=== PATIENT | female | born 1990 | race Caucasian/White ===

== ENCOUNTER 2016-06-26 02:11 | Inpatient (IN) | payer OTHER ==
[~2016-06-26] VITALS: Ht 154.9 cm; Wt 73.5 kg
[~2016-06-26 02:11] MED LIST: FIORICET 325 MG1 TAB PO; NAPROSYN 500 M500 MG PO; NEXPLANON68 MG
[2016-06-26 06:24] VITALS: BP 130/79
[2016-06-26] MEDS ORDERED: PRENATAL TABLE1 EAC2 PO (07:55)
--- NOTE | 2016-06-26 08:01 | History & Physical ---
General Information and HPI MD Statement: I have seen and personally examined EMELY CASTILLO and documented this H&P. The patient is a 25 year old female at [39] weeks and [0] days gestation who presented with a chief complaint of [Repeat C/S]. Source of Information: patient, old records Exam Limitations: no limitations History of Present Illness: 25 yo LMP of 09/27/2015 an DAVID of 07/03/2016 presents at 39 weeks 0/7 days for repeat low cervical transverse section. Issues for this history of prior section at 42 weeks for a 9 lbs. 3 oz. son. Evaluation during this shows placenta to be posterior. Patient requested repeat section. 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 3 oz. Type of Delivery: Anesthesia: Epidural Place of Delivery: [place] Complications: None Medical History Blood Transfusion Hx: No Neurological: chronic headaches managed with Fioricet as needed EENT: NONE Cardiovascular: NONE Respiratory: NONE Gastrointestinal: NONE Hepatic: NONE Renal: NONE Musculoskeletal: NONE Psychiatric: NONE Endocrine: NONE Blood Disorders: NONE Cancer(s): NONE BRIM BLOCKER/Reproductive: inplanted bc Surgical History Pertinent Surgical History: primary section Past Family/Social History Psychosocial History Where do you live? Home Who Do You Live With? spouse, child, self Primary Language: Macanese Smoking Status: Never Smoked ETOH Use: denies use Illicit Drug Use: denies illicit drug use Review of Systems Review of Systems: Currently negative cardiopulmonary GI complaints Exam & Diagnostic Data Last 24 Hrs of Vital Signs/I&O Vital Signs Date Time Temp Pulse Resp B/P Pulse O2 O2 Flow FiO2 Ox Delivery Rate 06/26 623 98.4 88 16 130/79 99 RA Intake & Output 06/26 1600 06/26 0800 06/26 0000 Intake Total Output Total Balance Patient 162 lb Weight Obstetric Exam Wgt Gained During : 28 pounds Pelvimetry: Was inadequate for a 9 lbs. 3 oz. son Dilation (cm): 0 Effacement (%): 0 Station: -2 Membranes: intact Fluid: unknown Fundal Height (cm): 38 Multiple Gestation? No Contractions: none #1 - FHR Baseline: 14 Category: 1 Estimated Weight: 7 pounds Presentation: Vertex Patient for Induction? No Physical Exam General Appearance Alert, Oriented X3, Cooperative, No Acute Distress Skin No Rashes, No Breakdown, No Significant Lesion Cardiovascular Regular Rate Lungs Normal Air Movement Abdomen Normal Bowel Sounds, Soft, No Tenderness, No Hepatospenomegaly, gravid uterus fundal height 38 cm's vertex presentation estimated weight 7 pounds heart rate 140s category 1 no palpable contractions Neurological Normal Gait, Normal Speech Extremities No Tenderness/Swelling Reproductive (FEMALE) Normal female genitalia Labs Blood Type & Rh: O+ Antibody Screen: Negative Hct/Hgb & Platelets #1: 13.6/40.1 platelet count 264,000 Hct/Hgb & Platelets #2: 12.5/37.8 platelet count 253,000. Rubella: Immune VDRL #1: Negative VDRL #2: Negative HbsAg: Negative HIV #1: Negative HIV #2 Negative 1 Hr P 3 Hr PG: Not applicable Group B Strep: Negative Initial Ultrasound: Initial ultrasound 11/27/2015 size equals dates equals ultrasound at 8 weeks 5/7 days Anatomy Ultrasound: Anatomy scan on 01/07/1621 weeks 5/7 days vertex posterior placenta 3 vessel cord and normal fluid normal cervix normal anatomy female 1.3 cm anterior myoma Ultrasound for EFW: 06/09/2016 size less than dates on clinical exam 46 percentile 6 lbs. 7 oz. biophysical 8 out of 8 Genetic Testing: Patient declined first trimester screen just declined maternal serum AFP multiple markers. She also declined CVS and amniocentesis. Last 24 Hrs of Labs/Benedict: Microbiology 06/26 0540 URINE ROUT: Urine Culture - COLB Assessment/Plan Assessment/Plan: Intrauterine at 39 weeks in a 2 para 1 whose last baby was 9 lbs. 3 oz. at 41 weeks gestation. Her last ended in due to arrest of dilatation. Patient is set for repeat section. Plan is repeat low cervical transverse section As Ranked By This Provider Problem List: 1. 2. Antibiotics administered prior to section 3. Previous section Core Measures/Miscellaneous Sawyer Catheter Date In: 06/26/16 Still Needed? Yes Venous Thromboembolism VTE Risk Factors: / VTE Contraindications: Active Bleeding (fall risk) VTE Prophylaxis Ordered Inpt: Mechanical (ALPS/TEDS) VTE Diagnosis: No Beta Ashley Is Beta Ashley a Home Med? No If No, Why Not? not clinically indicated Antibiotics Is Patient on Antibiotics? Yes If Yes: prophylaxis Attending MD Review Statement Attending Statement Attending MD Statement: examined this patient, discussed with family, reviewed EMR data (avail), discussed w/nursing Attending Assessment/Plan: Chelsey Casey M.D.
--- NOTE | 2016-06-26 10:16 | Operative Report ---
Operative/Inv Procedure Report Surgery Date: 06/26/16 Name of Procedure: Repeat low cervical transverse section Pre-Operative Diagnosis: 25-year-old 2 para 1 with a prior section at 41 weeks gestation for a 9 lbs. 3 oz. baby. Patient declined vaginal after section is a planned repeat . No tubal ligation Post-Operative Diagnosis: Same Estimated Blood Loss: normal for 550 ML Surgeon/Superintendent Pier: DOLLY KIM,KELLY Coker Anesthesia: spinal Monitors: EKG electrode, blood pressure cuff, pulse oximeter IV Fluids: 750 ML crystalloid Implants: None Urine Output: 300 ML Drains: [place] Specimens: None Microbiology: None Tourniquet: None Complications: None Condition: Good Operative Indication: 25-year-old 2 para 1 with a previous section for a 9 lbs. 3 oz. son at 41 weeks gestation. She had experienced a failed dilation in labor at with that last delivery. Patient declined vaginal after section attempt and is planned repeat section. No plans for tubal ligation Operative/Procedure Note Note: Patient was brought to the OR room, and was placed in the sitting position on the OR table. Patient was given 2 g Kefzol IV antibiotic prophylaxis. Spinal anesthetic was placed using sterile technique. Patient was then placed in dorsal supine position with a right hip wedge. heart rate was detected at 140s beats per minute without any decelerations. ulloa catheter was placed by the nursing staff to bedside drainage. timeout was discussed by the team and agreed upon. patient was then prepped draped in the usual sterile fashion. the area of her prior incision incision was infiltrated with half percent marcaine. the area of her prior incision was then carefully incised transversely. this incision was carried down the fascia. fascia incised transversely and manually divided. rectus muscles were manually divided. parietal peritoneum was bluntly entered and the parietal peritoneum was divided manually. The low uterine segment of the uterus was without significant adhesions. The utero vesicular fold the bladder peritoneum was elevated incised transversely and the bladder was reflected inferiorly. A small incision was made in the low uterine segment and the uterine cavity was entered bluntly. Clear fluid was noted. Uterine excision was extended manually to the right left sides. Hand was introduced into the low uterine segment vertex was palpated. With fundal pressure the vertex shifted to the patient's right lower quadrant. Fundal pressure was then discontinued and vacuum was applied to the vertex in the occiput region to maintain flexion and control of the head with delivery. With simple fundal pressure and guidance of the Kiwi the infant's head was delivered through the anterior-abdominal wall without difficulty. Loose nuchal cord 1 was easily reduced. Baby's mouth and nasopharynx were bulb suctioned on the intra- abdominal wall rest of infant's body was delivered without complication at 8:33 on 06/26/2016. Live viable female was noted weight 6 lbs. 12 oz. 3055 g Apgars . The 's mouth and nasopharynx were bulb suctioned on the intra-abdominal wall. And the umbilical cord was doubly clamped cut and the infant was handed to pediatric team for evaluation. Placenta was allowed to spontaneously deliver intact normal configuration 3 vessel cord. The uterus was exteriorized and draped with wet lap pad. The uterine cavity was wiped clean of any residual membranes. No evidence of retained placental fragments. Configuration of the uterus was within normal limits.. The previously noted 1.3 cm anterior myoma was not appreciated at this time. Both fallopian tubes were normal and both ovaries were normal. There was a focal atony of the low uterine segment which was managed with the IV Pitocin IM Pitocin and IM Methergine. The uterine incision was closed with 2 separate layers first layer was running locking second layer running imbricating. 2 small [id number] sutures were used after closure of the uterus to maintain good hemostasis. Pelvis was irrigated fluid was aspirated. Good hemostasis continued. We then returned the uterus to the pelvic cavity. Good hemostasis continued. Parietal peritoneum was closed with running suture. Muscles reapproximated midline with a figure-of -eight suture. Small bleeders were managed with both 2-0 Vicryl and unipolar cautery on the muscle layer. Good hemostasis was observed at this time. Fascia closed with 2 separate segments running interlocking suture. Subcutaneous tissue was closed using 20 plain gut. Skin edges reapproximated with subcutaneous closure with Monocryl. Pressure dressing was applied. At the completion the procedure good hemostasis was noted to be present. The uterus was evacuated of any blood clots. There was no significant bleeding from the vagina. final evacuation of blood from the low uterine segment. Sponge needle and sponge counts were correct 4. Patient was transferred to the stretcher to go to the recovery room. Findings: Planned repeat section not in labor. No significant intra-abdominal or intrapelvic adhesions. Time of delivery 8:33 on 06/26/2016. Live viable female was delivered. 6 lbs. 12 oz. 3055 g Apgars 9/9/and 9. Normal placenta 3 vessel cord normal configuration of the uterus fallopian tubes and ovaries. To maintain flexion and control of the vertex the vacuum assist was utilized at time of delivery. Loose nuchal cord easily reduced. Mild low segment uterine atony that was managed with IV Pitocin intramyometrial Pitocin and IM Methergine. Discharge Disposition: CC: DESIREE GOODSON MD,ROB
[2016-06-27 10:39] LABS: ABSOLUTE BASOPHIL COUNT 0 /CUMM (0.0-0.2); ABSOLUTE EOSINOPHIL COUNT 0 /CUMM (0.0-0.7); ABSOLUTE LYMPH COUNT 1.2 /CUMM (1.2-3.4); ABSOLUTE MONOCYTE COUNT 0.5 /CUMM (0.10-0.60); MEAN CORPUSCULAR VOLUME 84.3 FL (81.0-99.0); RED BLOOD CELL CT 3.79 /CUMM (4.20-5.40)
[2016-06-27 10:44] LABS: ABSOLUTE GRANULOCYTE CT 7.5 /CUMM (1.4-6.5); BASOPHIL % 0.3 % (0.0-2.0); EOSINOPHIL % 0.2 % (0-5); GRANULOCYTE % 81.4 % (42.2-75.2); MEAN CORPUSCULAR HGB 28.2 PG (27.0-31.0); MEAN CORPUSCULAR HGB CONC 33.4 G/DL (33.0-37.0); PLATELET COUNT 208 /CUMM (130-400); RBC DISTRIBUTION WIDTH 14.5 % (11.5-14.5); WHITE BLOOD CELL COUNT 9.3 /CUMM (4.8-10.8)
[2016-06-27 10:45] LABS: HEMATOCRIT 31.9 % (37-47)
--- NOTE | 2016-06-27 12:21 | PN- Post Delivery/GYN ---
Subjective Subjective: Doing well - no complaints Review of Systems: Neg for cardiac pulmonary GI complaints Objective Last 24 Hrs of Vital Signs/I&O T max 98.6 VSS Physical Exam General Appearance Alert, Oriented X3, Cooperative, No Acute Distress Skin No Rashes, No Breakdown Cardiovascular Regular Rate Lungs Normal Air Movement Abdomen Normal Bowel Sounds, Soft, No Tenderness, No Hepatospenomegaly, uterus firm 3 FB below umbilicus nontender ncision clean dry intact Neurological Normal Gait, Normal Speech Extremities No Tenderness/Swelling Reproductive (FEMALE) Normal female genitalia, avge lochia Current Medications: Current Medications Sig/Emmanuel Start time Last Medication Dose Route Stop Time Status Admin Acetaminophen 1,000 MG Q6P PRN 06/26 1030 DC N/A 1 UNIT IV 06/27 0800 Bisacodyl 10 MG DAILY NEEDED PRN 06/26 1030 AC [place] Bupivacaine HCl 10 ML .[X 1 IN OR] 06/26 1030 AC 06/26 TOP-INJ 0827 Butorphanol Tartrate 2 MG .[X1] 06/26 1900 CAN IV Diphenhydramine HCl 25 MG Q6P PRN 06/26 1130 AC IV Docusate Sodium 100 MG AT BEDTIME PRN 06/26 1030 AC PO Hydroxyzine HCl 100 MG AT BEDTIME NEED.. 06/27 0000 AC PO 06/30 0001 Ibuprofen 800 MG Q6P PRN 06/26 1030 AC 06/27 PO 1023 Ketorolac 30 MG .STK-MED ONE 06/27 0321 DC Tromethamine IM 06/27 0322 Ketorolac 30 MG Q6H 06/26 1530 DC 06/27 Tromethamine IV 06/27 0331 0327 Ketorolac 30 MG Q6 06/26 1200 DC Tromethamine IV 06/27 0601 Lactated Ringer's 500 ML .Q31M 06/26 1815 DC 06/26 IV 06/26 1845 1844 Lactated Ringer's 1,000 ML Q8H 06/26 1030 AC 06/26 IV 2144 Magnesium Hydroxide 30 ML DAILY NEEDED PRN 06/26 1030 AC PO 06/29 1031 Metoclopramide HCl 10 MG Q6P PRN 06/26 1130 AC 06/26 IV 2139 Naloxone HCl 0.2 MG .EVERY 5 MINUTES PRN 06/26 1130 AC IV Oxycodone/ 1 TAB Q4P PRN 06/26 1030 AC Acetaminophen PO Oxycodone/ 2 TAB Q4P PRN 06/26 1030 AC Acetaminophen PO Oxytocin 20 UNITS Q8H 06/26 1030 DC 06/26 Lactated Ringer's 1,000 ML IV 06/26 1829 1015 Last 24 Hrs of Labs/Benedict: Laboratory Tests 06/27/16 0940: CBC w Diff NO MAN DIFF REQ, RBC 3.79 L, MCV 84.3, MCH 28.2, RDW 14.5, MPV 9.0, Gran % 81.4 H, Lymphocytes % 12.6 L, Monocytes % 5.5, Eosinophils % 0.2, Basophils % 0.3, Absolute Granulocytes 7.5 H, Absolute Lymphocytes 1.2, Absolute Monocytes 0.5, Absolute Eosinophils 0, Absolute Basophils 0, PUBS MCHC 33.4 Assessment/Plan Assessment/Plan Assessment: day/postoperative day #1. Patient remains afebrile. She is ambulating well with minimal pain medication usage. So far is tolerating a regular diet. Plan: Advance ambulation continue regular diet and by mouth pain medications. Problem List: 1. 2. Antibiotics administered prior to section 3. Previous section 4. delivery with vacuum assistance, delivered, current hospitalization Attending MD Review Statement Attending Statement Attending MD Statement: examined this patient, discussed with family, reviewed EMR data (avail), discussed with nursing Attending Assessment/Plan: Chelsey Casey MD
--- NOTE | 2016-06-28 11:21 | PN- Post Delivery/GYN ---
Subjective Subjective: DOING WELL OVERALL , HAS BEEN A MINIMALIST W/ PAIN MED USAGE - ADVISED TO USE PERCOCET NEEDED NAD NOT BE IN "TOO MUCH" PAIN. Review of Systems: NEG FOR CARDIAC PULMONARY GI COMPLAINTS Objective Last 24 Hrs of Vital Signs/I&O T MAX 97.8 P 80 R 16 BP 120/70 PO2 98% Physical Exam General Appearance Alert, Oriented X3, Cooperative, No Acute Distress Cardiovascular Regular Rate Lungs Normal Air Movement Abdomen Normal Bowel Sounds, Soft, No Tenderness, No Hepatospenomegaly, NONTENDER UTERUS FIRM MIDLINE 3 FB BELOW UMBILICUS INCISION CLEAN DRY INTACT Neurological Normal Gait, Normal Speech Extremities No Tenderness/Swelling Pelvic (FEMALE) Appearance Normal Current Medications: Current Medications Sig/Emmanuel Start time Last Medication Dose Route Stop Time Status Admin Bisacodyl 10 MG DAILY NEEDED PRN 06/26 1030 AC [place] Bupivacaine HCl 10 ML .[X 1 IN OR] 06/26 1030 06/26 TOP-INJ 0827 Diphenhydramine HCl 25 MG Q6P PRN 06/26 1130 AC IV Docusate Sodium 100 MG .STK-MED ONE 06/27 2327 DC PO 06/27 2328 Docusate Sodium 100 MG AT BEDTIME PRN 06/26 1030 AC 06/27 PO 2340 Hydroxyzine HCl 100 MG AT BEDTIME NEED.. 06/27 0000 AC PO 06/30 0001 Ibuprofen 800 MG .STK-MED ONE 06/27 2154 DC PO 06/27 2155 Ibuprofen 800 MG .STK-MED ONE 06/27 1553 DC PO 06/27 1554 Ibuprofen 800 MG Q6P PRN 06/26 1030 AC 06/28 PO 1048 Lactated Ringer's 1,000 ML Q8H 06/26 1030 DC 06/26 IV 2144 Magnesium Hydroxide 30 ML DAILY NEEDED PRN 06/26 1030 AC PO 06/29 1031 Metoclopramide HCl 10 MG Q6P PRN 06/26 1130 AC 06/26 IV 2139 Naloxone HCl 0.2 MG .EVERY 5 MINUTES PRN 06/26 1130 AC IV Oxycodone/ 1 TAB .STK-MED ONE 06/27 1831 DC Acetaminophen PO 06/27 1832 Oxycodone/ 1 TAB Q4P PRN 06/26 1030 AC 06/28 Acetaminophen PO 1107 Oxycodone/ 2 TAB Q4P PRN 06/26 1030 AC Acetaminophen PO Assessment/Plan Assessment/Plan STABLE POD # 2 DOING WELL ROUTINE PP POST OP CARE ENCOURAGE APPROPRIATE PAIN MED USAGE Ramya ALBERTO MD Problem List: 1. 2. Antibiotics administered prior to section 3. delivery delivered 4. delivery with vacuum assistance, delivered, current hospitalization 5. Previous section Attending MD Review Statement Attending Statement Attending MD Statement: examined this patient, discussed with family, reviewed EMR data (avail), discussed with nursing Attending Assessment/Plan: Ramya ALBERTO MD
[2016-06-29] MEDS ORDERED: PERCOCET 5-3251 EACH PO (09:09)
[2016-06-29] MEDS ORDERED: IBUPROFEN800 M1 PO (09:09)
--- NOTE | 2016-06-29 09:51 | PN- OBGYN ---
Surgical Brief Attending Note Brief Attending Note: POD#3 pt is resting in bed, no complaints, tolerate diet, void without difficulties, ambulation well.pt is bottle feeding PE: VSS Cv RRR lungs CTA B/L Abdom,en: soft, nontender, uterus firm, fundus below umbilicus. incision D/C/I. lochia mild Ext: DCT (-) A/P: 25yo, s/p c/s, POD #3 1. encourage ambulation 2. pain management as needed 3. will d/c home, f/u in office in 2wks and 6 wks. precautions given, she understand.
--- NOTE | 2016-07-01 13:54 | Discharge Summary ---
Visit Information Visit Dates Admission Date: 06/26/16 Discharge Date: 06/29/16 Hospital Course Course Attending Physician: DOLLY KIM,KELLY Gant Primary Care Physician: PATIENT HAS NO PRIMARY CARE DR Hospital Course: 25 yo LMP of 09/27/2015 an DAVID of 07/03/2016 presents at 39 weeks 0/7 days for repeat low cervical transverse section. Issues for this history of prior section at 42 weeks for a 9 lbs. 3 oz. son. Evaluation during this shows placenta to be posterior. Patient requested repeat section. Patient was a same-day admit for repeat section. She declined tubal ligation. On 06/26/2016 patient had a repeat low cervical transverse section for a live viable female infant 6 lbs. 12 oz. 3055 g Apgars 9, 9, and 9. At time of surgery the placenta delivered spontaneously intact normal configuration 3 vessel cord. The configuration of the uterus fallopian tubes and ovaries were within normal limits. Following delivery the placenta there was some low segment atony that responded to IV Pitocin intramyometrial Pitocin and IM Methergine. The patient had no further significant bleeding postoperatively. Patient remained afebrile. By the third postoperative day she was ambulating without difficulty and her pain was controlled with by mouth pain medication. Patient had full return of GI function. Her incision remained clean dry and intact. Her lochia remained within normal limits. Patient was discharged to home on postop day #3 with vitamins, Motrin 800 one by mouth every 6 hours when necessary Percocet 1-2 every 4-6 hours when necessary Postop day 1: CBC 10.7/31.9 normal platelet count Complications: None Allergies: Coded Allergies: NO KNOWN ALLERGIES (08/27/15) Significant Procedures: 06/26/2016 repeat low cervical transverse section Pertinent Lab Results: Postoperative day 1 hemoglobin 10.7 hematocrit 31.9 normal platelet count Disposition Summary Disposition Principal Diagnosis: Term live child delivered live viable female. Additional Diagnosis: Prior section Land repeat section Discharge Disposition: home or self care Discharge Instructions General Discharge Information Code Status: Full Code Patient's Diet: Regular Patient's Activity: Patient self-limited total full activities by 6 weeks. Follow-Up Instructions/Appts: Patient to call for severe abdominal pain heavy vaginal bleeding or fever greater than 100.4. Patient will be seen in the office at 2 weeks and 6 weeks Medications at Discharge Discharge Medications: Stop taking the following medications: Etonogestrel (Nexplanon) 68 MG IMP Continue taking these medications: Acetaminophen/Butalbital/Caf (Fioricet 325 MG-50 MG-40 MG) 1 TAB TAB 1 Tablet ORAL THREE TIMES DAILY as needed for HEADACHE Qty = 21 Vit No.130/Iron/FA ( Tablet) 27 MG IRON-800 MCG TABLET 1 Tablet ORAL DAILY Start taking the following new medications: Ibuprofen (Ibuprofen) 800 MG TABLET 800 Milligram ORAL EVERY SIX HOURS NEEDED as needed for UTERINE CRAMPING Qty = 30 No Refills Comments: Last Taken:[id number] Time:1030 Oxycodone HCl/Acetaminophen (Percocet 5-325 MG Tablet) 5 MG-325 MG TABLET 2 Tablet ORAL EVERY 4 HOURS NEEDED as needed for PAIN SCALE 7-10 (SEVERE) Qty = 30 No Refills Comments: Last Taken:06/29/16 Time:147 Copies To: LIANNE KIM,JOHN Wills
== END 2016-06-29 11:15 | DRG 540 ==
LOC: GNO 02:11 → SDA 02:11 → GNO 06:13
PROVIDERS: ADMIT Obstetrics & Gynecology
PROC: 10D00Z1 Extraction of Products of Conception, Low, Open Approach (ICD-10-PCS; principal; 2016-06-26)
DX: O34.211 Maternal care for low transverse scar from previous cesarean delivery (principal); O69.81X0 Labor and delivery complicated by cord around neck, without compression, not applicable or unspecified; N85.8 Other specified noninflammatory disorders of uterus; Z3A.39 39 weeks gestation of pregnancy; Z37.0 Single live birth
CPT/HCPCS: GNOS; 81001; 87086; J0690; J1885; J2765; J7120